=== PATIENT | male | born 1945 | race Caucasian/White ===

== ENCOUNTER 2016-12-06 12:37 | Observation (INO) | payer OTHER ==
[~2016-12-06] VITALS: Ht 188 cm; Wt 113.0 kg
[~2016-12-06 12:37] MED LIST: FAMO20TA18 PO; HYDR25SU24 PR; OLME1TAB33 PO
[2016-12-06 12:39] VITALS: Ht 188 cm; Wt 113.0 kg
--- NOTE | 2016-12-06 13:28 | ERA ---
ER Documentation Chief Complaint Date/Time DATE: 12/06/16 TIME: 13:27 Chief Complaint SENT BY PMD FOR LOW Hb HPI Patient is a 71-year-old male sent by PMD for low hemoglobin. The patient has history of esophagitis and GI bleed requiring 3 unit blood transfusion one year ago. Patient denies dark stool, bloody stool, vomiting, weakness, fatigue, lightheadedness, shortness of breath. Patient states that he went to the PMD for refill of blood pressure medication. ROS All systems reviewed and are negative except as per history of present illness. Medications Home Meds Reported Medications Xjbsxxnbor-Sanszhlhia-CWJL (Tribenzor) 40-5-25 Mg Tablet, 1 TAB PO DAILY, TAB 08/23/14 Discontinued Scripts Famotidine* (Famotidine*) 20 Mg Tablet, 20 MG PO DAILY, #30 TAB Prov:SEBASTIAN AHN DO 05/22/15 Hydrocortisone Acetate* (Anusol-HC*) 25 Mg/Supp.rect Supp.rect, 1 SUPP MD BID, # 12 SUPP.RECT Prov:SEBASTIAN AHN DO 05/22/15 Allergies Allergies: Coded Allergies: No Known Allergy (Unverified , 05/22/15) PMhx/Soc Past medical history: Hypertension, esophagitis Past surgical history: Back surgery Social history: Former tobacco smoker, no alcohol History of Surgery: No Anesthesia Reaction: No Hx Neurological Disorder: No Hx Respiratory Disorders: No Hx Cardiac Disorders: No Hx Psychiatric Problems: No Hx Miscellaneous Medical Probl: Yes (HTN, GI bleed) Hx Alcohol Use: No Hx Substance Use: No Hx Tobacco Use: No FmHx Family History: No coronary disease, No diabetes Physical Exam Vitals Vital Signs Date Time Temp Pulse Resp B/P Pulse Ox O2 Delivery O2 Flow Rate FiO2 12/06/16 12:39 98.5 90 18 148/70 99 Physical Exam Const: Alert, no acute distress Head: Atraumatic Eyes: Normal Conjunctiva, no pallor or icterus ENT: Normal External Ears, Nose and Mouth. Moist mucous membranes Neck: Full range of motion. No JVD. No meningismus. Resp: Clear to auscultation bilaterally, no wheezes, no rales Cardio: Regular rate and rhythm, no murmurs Abd: Soft, non tender, non distended. No guarding, no rebound Skin: No petechiae or rashes Back: No midline or flank tenderness Ext: No cyanosis, or edema Neur: Awake and alert, cranial nerves II through XII intact bilaterally, moves and feels 4 extremities appropriately. Psych: Normal Mood and Affect Result Diagram: 12/06/16 1345 12/06/16 1345 Results 24 hrs Laboratory Tests Test 12/06/16 13:45 White Blood Count 4.010^3/ul Red Blood Count 3.9310^6/ul Hemoglobin 8.7g/dl Hematocrit 31.1% Mean Corpuscular Volume 79.1fl Mean Corpuscular Hemoglobin 22.1pg Mean Corpuscular Hemoglobin Concent 28.0g/dl Red Cell Distribution Width 17.8% Platelet Count 9510^3/UL Mean Platelet Volume 9.4fl Neutrophils % 65.0% Lymphocytes % 27.0% Monocytes % 6.0% Eosinophils % 1.0% Basophils % 1.0% Neutrophils # 2.610^3/ul Lymphocytes # 1.110^3/ul Monocytes # 0.210^3/ul Eosinophils # 0.010^3/ul Basophils # 0.010^3/ul Prothrombin Time 14.4Sec Prothrombin Time Ratio 1.1 INR International Normalized Ratio 1.12 Activated Partial Thromboplast Time 37.4Sec Sodium Level 141mmol/L Potassium Level 4.1mmol/L Chloride Level 101mmol/L Carbon Dioxide Level 28mmol/L Anion Gap 16 Blood Urea Nitrogen 14mg/dl Creatinine 1.01mg/dl Glucose Level 102mg/dl Calcium Level 9.7mg/dl Total Bilirubin 0.7mg/dl Direct Bilirubin 0.00mg/dl Indirect Bilirubin 0.7mg/dl Aspartate Amino Transf (AST/SGOT) 41IU/L Alanine Aminotransferase (ALT/SGPT) 43IU/L Alkaline Phosphatase 71IU/L Total Protein 8.2g/dl Albumin 4.3g/dl Globulin 3.90g/dl Albumin/Globulin Ratio 1.10 Current Medications Medications (Trade) Dose Ordered Sig/Janna Route PRN Reason Start Time Stop Time Status Last Admin Dose Admin Pantoprazole (Protonix Iv) 40 mg ONCE ONCE IV 12/06/16 14:00 12/06/16 14:01 DC 12/06/16 13:58 Procedures/MDM 1:30 PM: I spoke with Dr. Walters, the patient's primary MD, who states that the patient had a positive guaiac in the office, that the patient's hemoglobin is 15 a few months ago, and that the patient has history of diffuse esophagitis causing GI bleed. Dr. Walters requested admission for monitoring of hemoglobin and GI consult. MDM: Patient with history of esophagitis causing GI bleed and required transfusion 1 year ago sent by his PMD for new onset anemia and guaiac positive stool. The patient is asymptomatic and hemodynamically stable. Hemoglobin is greater than 8. I will admit him to Dr. Nunez for trending of hemoglobin and GI consult. Single dose of Protonix given in the ER. No evidence of coagulopathy or thrombocytopenia. Departure Diagnosis: Primary Impression: Guaiac positive stools Additional Impression: Anemia Condition: ABA Mora MD Dec 06, 2016 13:28
[2016-12-06 13:52] LABS: ADD SCAN DIFF NO
[2016-12-06 13:54] LABS: ABNORMAL IP MESSAGE 1; HEMATOCRIT 31.1 % (42.0-52.0); HEMOGLOBIN 8.7 g/dl (14.0-18.0); MEAN CORPUSCULAR HEMOGLOBIN 22.1 pg (29.0-33.0); MEAN CORPUSCULAR VOLUME 79.1 fl (82.0-101.0); MEAN PLATELET VOLUME 9.4 fl (7.4-10.4); PLATELET COUNT 95 10^3/UL (140-415); RED BLOOD COUNT 3.93 10^6/ul (4.70-6.10); RED CELL DISTRIBUTION WIDTH 17.8 % (11.5-14.5)
[2016-12-06] MEDS ORDERED: PANTOPRAZOLE 40 MG INJ IV ONE (14:00)
[2016-12-06 14:03] LABS: ALBUMIN 4.3 g/dl (3.3-4.9)
[2016-12-06 14:04] LABS: POTASSIUM 4.1 mmol/L (3.5-5.1)
[2016-12-06 14:05] LABS: INR 1.12; PROTIME 14.4 Sec (12.2-14.2); PT RATIO 1.1
[2016-12-06 14:06] LABS: ALBUMIN/GLOBULIN RATIO 1.1; BILIRUBIN,INDIRECT 0.7 mg/dl (0-1.1); BILIRUBIN,TOTAL 0.7 mg/dl (0.2-1.3); CREATININE 1.01 mg/dl (0.61-1.24); PARTIAL THROMBOPLASTIN TIME 37.4 Sec (25.0-35.0); TOTAL PROTEIN 8.2 g/dl (6.1-8.1)
[2016-12-06 14:07] LABS: CALCIUM 9.7 mg/dl (8.4-10.2)
[2016-12-06 14:30] LABS: LYMPHOCYTES # 1.1 10^3/ul (0.8-2.9); MONOCYTE # 0.2 10^3/ul (0.3-0.9); NEUTROPHIL # 2.6 10^3/ul (1.6-7.5)
[2016-12-06] MEDS ORDERED: ACETAMINOPHEN 325 MG TAB PO PRN ×2 (16:30→18:00)
[2016-12-06] MEDS ORDERED: ONDANSETRON 4 MG INJ IV PRN ×2 (16:30→18:00)
[2016-12-06] MEDS: SOD CHLORIDE 0.9% 1,000 ML IV SCH (17:28)
[2016-12-06] MEDS ORDERED: ZOLPIDEM 5 MG TAB PO PRN (18:00)
[2016-12-06] MEDS ORDERED: NACL 0.9% 3 ML SYG IV SCH (18:00)
[2016-12-06] MEDS ORDERED: [UNRECOGNIZED DRUG - REMARK] XX SCH (18:00)
[2016-12-06] MEDS ORDERED: DOCUSATE SODIUM 100 MG CAP PO PRN (18:00)
[2016-12-06] MEDS ORDERED: morphine 2 MG INJ IV PRN (18:00)
[2016-12-06] MEDS ORDERED: HYDROCODONE/APAP (5/325) TAB PO PRN (18:00)
--- NOTE | 2016-12-06 18:10 | HP ---
DATE OF ADMISSION: 12/06/2016 CHIEF COMPLAINT: Anemia. HISTORY OF PRESENT ILLNESS: The patient is a 71-year-old male with a history of hypertension as wel l as chronic abdominal pain after he eats, as well as anemia. The patient was hospitalized here in 2013 for iron deficiency anemia. The patient does see Dr. Basurto in clinic. During last hospitaliz ation, the patient did receive iron as well as blood. Patient presents from his primary care physic michael's office with report of anemia. Patient's hemoglobin in the office was 9. In the ED at this ti wy it is 8.7. The patient's MCV is also low. He denies any dizziness, any chest pain or shortness of breath. He had gone to his primary care physician and received antibiotics for upper respiratory infection. He has no other complaints at this time. PAST MEDICAL HISTORY: As per HPI. HOME MEDICATIONS: Please see medication reconciliation. ALLERGIES: NO KNOWN DRUG ALLERGIES. FAMILY HISTORY: Noncontributory. SOCIAL HISTORY: The patient used to be a heavy smoker in the past, but he quit. He uses alcohol oc casionally. No illicit drug use. REVIEW OF SYSTEMS: A 12-point review of systems negative except as in HPI. PHYSICAL EXAMINATION: VITAL SIGNS: Temperature is 98.5, pulse 73, respiration is 20, BP is 158/70, saturation 98% on room air. GENERAL: No acute distress, alert and oriented. HEENT: Normocephalic, atraumatic. LUNGS: Clear to auscultation. CARDIOVASCULAR: Regular rate and rhythm. ABDOMEN: Obese, distended, nontender, soft. EXTREMITIES: No clubbing, cyanosis, or edema. LABORATORY TESTS: White count 4.____, hemoglobin is 8.7, MCV is 79.1, hematocrit is 31.1, platelets are 95. Chemistry within normal limits. INR is 1.12. ASSESSMENT AND PLAN: 1. Microcytic anemia. The patient does have a known history of microcytic anemia in the past secon karoline to iron deficiency. Will treat by giving 2 units packed red blood cells, we will check an iron level in the a.m. and will order Ferrlecit IV for the a.m.. The patient does follow up with Dr. Ashleigh glaser as an outpatient. 2. Pancytopenia. Patient does have leukopenia and thrombocytopenia as well as anemia. This is a c hronic issue for the patient. The patient follows up with Dr. Basurto as an outpatient. 3. Hypertension, stable. Continue home medications. 4. Recent upper respiratory infection, stable. 5. Prophylaxis: Sterile compressive dressings. Dictated By: OREN SALAMANCA MD BS/NTS Conf#: [id number] DID#: [id number]
[2016-12-06 21:13] VITALS: BP 167/72; RESP 18
[2016-12-07] MEDS: SOD CHLORIDE 0.9% 1,000 ML IV SCH ×4 (03:00→23:00)
[2016-12-07 05:50] LABS: ADD SCAN DIFF NO
[2016-12-07 05:53] LABS: ABNORMAL IP MESSAGE 1; BASOPHILS % 0.4 % (0.0-2.0); EOSINOPHILS # 0.1 10^3/ul (0.0-0.5); EOSINOPHILS % 1.3 % (0.0-7.0); HEMATOCRIT 28.6 % (42.0-52.0); HEMOGLOBIN 7.9 g/dl (14.0-18.0); LYMPHOCYTES # 0.6 10^3/ul (0.8-2.9); LYMPHOCYTES % 11.3 % (15.0-51.0); MEAN CORPUSCULAR HEMOGLOBIN 21.8 pg (29.0-33.0); MEAN CORPUSCULAR HGB CONC 27.6 g/dl (32.0-37.0); MEAN CORPUSCULAR VOLUME 78.8 fl (82.0-101.0); MEAN PLATELET VOLUME 10.9 fl (7.4-10.4); MONOCYTE # 0.6 10^3/ul (0.3-0.9); NEUTROPHIL # 4.2 10^3/ul (1.6-7.5); NEUTROPHILS % 75.6 % (39.0-77.0); PLATELET COUNT 86 10^3/UL (140-415); RED BLOOD COUNT 3.63 10^6/ul (4.70-6.10); RED CELL DISTRIBUTION WIDTH 17.8 % (11.5-14.5); WHITE BLOOD COUNT 5.6 10^3/ul (4.8-10.8)
[2016-12-07] MEDS ORDERED: PANTOPRAZOLE (EC) 40 MG TAB PO SCH (06:00)
[2016-12-07 06:08] LABS: CALCIUM 8.7 mg/dl (8.4-10.2); CREATININE 0.97 mg/dl (0.61-1.24); MAGNESIUM 1.4 mg/dl (1.7-2.5); PHOSPHORUS 4.1 mg/dl (2.5-4.9); POTASSIUM 4.3 mmol/L (3.5-5.1)
[2016-12-07 06:19] LABS: IRON 31 ug/dl (35-150)
[2016-12-07 06:29] LABS: TOTAL IRON BINDING CAPACITY 452 ug/dl (241-421)
[2016-12-07 08:42] VITALS: BP 142/67; RESP 18
[2016-12-07] MEDS ORDERED: NON-FORMULARY/PATIENT OWN MED (Olmesartan-Amlodipine-HCTZ (Tribenzor) 1 TAB) XX SCH (09:00)
[2016-12-07] MEDS ORDERED: TRIBENZOR PO SCH (09:00)
[2016-12-07] MEDS ORDERED: SOD CHLORIDE 0.9% 250 ML IV* ONE (09:57)
[2016-12-07] MEDS ORDERED: SOD FERRIC GLUC COMPLX 125 MG in SOD CHLORIDE 0.9% 100 ML IVPB ONE (11:30)
[2016-12-07] MEDS ORDERED: MAGNESIUM SULFATE 4 GM/100 ML 100 ML IVPB ONE (12:00)
[2016-12-07] MEDS ORDERED: ASC500 PO (13:33)
[2016-12-07] MEDS ORDERED: FER325 PO (13:33)
--- NOTE | 2016-12-07 13:34 | PDOCDIS ---
Discharge Instructions CONDITION Patient Condition: Good HOME CARE INSTRUCTIONS: Diet Instructions: Regular ACTIVITY: Activity Restrictions: No Restrictions FOLLOW UP/APPOINTMENTS Appointments F/U WITH YOUR PCP IN 1-2 WEEKS OREN SALAMANCA Dec 07, 2016 13:34
--- NOTE | 2016-12-07 14:37 | DS ---
DATE OF ADMISSION: 12/06/2016 DATE OF DISCHARGE: 12/07/2016 DISCHARGE DIAGNOSES: 1. Iron deficiency anemia, status post 2 units of packed red blood cells and IV iron, discharge wit h p.o. iron. 2. Pancytopenia is chronic. The patient does follow up with hematology as an outpatient. 3. Hypertension, stable. Continue home medications. 4. Recent upper respiratory infection, now stable. HOSPITAL COURSE: The patient is a 71-year-old male with a history of pancytopenia with leukopenia, anemia, and thrombocytopenia. The patient does have a known history of iron deficiency anemia. The patient does follow up with Dr. Basurto as an outpatient. The patient was noted to be anemic at his primary care physician's office. He was sent to the ED. The patient received 2 units of packed blo od cells as well as IV iron during his hospitalization. Of note, he was asymptomatic, was not compl aining of any dizziness, any shortness of breath. Once again, the patient was transfused 2 units of packed red blood cells. He received Ferrlecit IV and he was felt to be stable for discharge. On t day of discharge, the patient's vitals, labs, physical exam were stable. He had no acute complai nts and questions were answered. CONDITION ON DISCHARGE: Stable. DISPOSITION: To home. MEDICATIONS: The patient was given a prescription for ferrous sulfate 325 mg p.o. b.i.d. for 60 day s to be taking with Vitamin C 500 mg p.o. b.i.d. for 60 days. The patient is to continue his home b lood pressure medication. FOLLOWUP: Follow up with his PCP in 1 to 2 weeks. Greater than 30 minutes was spent coordinating discharge of patient. Dictated By: OREN DOMINGUEZ/PAUL Conf#: [id number] DID#: [id number]
[2016-12-07 20:00] VITALS: BP 150/60; PULSE 80; RESP 18
[2016-12-07 23:30] VITALS: BP 146/64; PULSE 76; RESP 19
== END 2016-12-07 23:59 | disposition home or self-care (01) ==
LOC: E/R 12:37 → MS2 16:14
PROVIDERS: ADMIT Family Medicine; ATTEND Family Medicine
DX: D50.9 Iron deficiency anemia, unspecified (principal); D61.818 Other pancytopenia; R19.5 Other fecal abnormalities; I10 Essential (primary) hypertension; J06.9 Acute upper respiratory infection, unspecified
CPT/HCPCS: 36415; 36430; 80048; 80053; 83036; 83540; 83735; 84100; 85025; 85610; 85730; 86644; 86850; 86900; 86901; 86920; 96374; 99285; C9113; G0378; J2916; J3475; J7030; J7040; P9016; 99217

== ENCOUNTER 2017-07-27 07:39 | Day surgery (SDC) | payer OTHER ==
[~2017-07-27] VITALS: Ht 190.5 cm; Wt 116.8 kg
[~2017-07-27 07:39] MED LIST changes: +ASC500 PO; -FAMO20TA18 PO; +FER325 PO; -HYDR25SU24 PR
[2017-07-27 08:39] VITALS: BP 183/81; PULSE 68; RESP 16
[2017-07-27 08:46] VITALS: Ht 190.5 cm; Wt 116.8 kg
[2017-07-27] MEDS ORDERED: LIDOCAINE 2% (SDV) 5 ML INJ ONE (09:02)
[2017-07-27] MEDS ORDERED: PROPOFOL 60 ML ONE (09:02)
--- NOTE | 2017-07-27 09:43 | OPPN ---
Date/Time of Note Date/Time of Note DATE: 07/27/17 TIME: 09:42 Proc Note GI Procedure Date 07/27/17 Indication: diagnostic Pre-procedure Diagnosis Iron deficiency anemia Post-procedure Diagnosis Severe nodular gastritis Rectal varicose vein 3 polyp successfully removed by cold snare technique Hemorrhoid Procedure Performed: Endoscopy, Colonoscopy Surgeon see signature line Lockstitch Back Maker none Anesthesia Type: MAC Tourniquet Time none EBL none Transfusion required none Biopsy 1: None Polyp 1: Colon polyp removed Polyp 2: Transverse colon polyp removed Polyp 3: Total polyp removed by cold snare technique Grafts/Implants none Tubes/Drains none Complication(s) none Disposition: PACU Procedure Description Dictated JOSE WEBB MD Jul 27, 2017 09:43
[2017-07-27 10:05] VITALS: BP 156/72; RESP 20
--- NOTE | 2017-07-28 07:58 | GILP ---
DATE OF PROCEDURE: PROCEDURE PERFORMED: Esophagogastroduodenoscopy with biopsy and cold snare polypectomy. Totally 3 polyps were removed on patient. INDICATION: A 72-year-old male undergoing this procedure for iron deficiency anemia. The risks of the procedure, related and unrelated complications, anesthetic risks, alternatives discussed. Infor med consent was obtained. DESCRIPTION OF PROCEDURE: The patient was brought to the GI lab, sedated by Dr. Alva. After obta ining appropriate sedation, scope was passed with much ease into esophagus which was grossly within normal limits. Z line was at 40 cm. Stomach mucosa revealed moderate to severe gastritis with nodu larity throughout the stomach. Four biopsies obtained. Duodenum, first and second part was within normal limits. Retroversion in the stomach was normal. No varicose vein identified. Scope was str aightened out and removed with good patient tolerance. IMPRESSION 1. Normal esophagus. 2. Z line regular at 40 cm. 3. Torre nodular gastritis, moderate to severe degree. 4. Normal duodenum. PLAN: Review histopathology. COLONOSCOPY REPORT: The patient was turned around. Digital examination done, which was normal. Sc ope was passed with much ease into rectum. The rectal varicose vein identified and advanced slowly all the way into the cecum. Appendiceal orifice identified. While coming out, mucosa thoroughly in spected. There was a 1 cm polyp identified in the ascending colon successfully removed by cold snar e technique. There was another 1 cm polyp identified in the transverse colon, again removed by cold snare technique and there was a third a flat polyp identified in the rectum 1.1 cm successfully aga in removed by cold snare technique. The patient had external hemorrhoids. IMPRESSION: 1. External hemorrhoid. 2. Rectal varicose vein. 3. Three polyps successfully removed by cold snare technique from different sites. PLAN: Review histopathology of the polyp. I need to look at the lab and find out whether the patie nt has a true iron deficiency or not. If it is a true iron deficiency, then will proceed with capsu le endoscopy. If it is not, then patient needs further workup for anemia. Dictated By: JOSE WEBB MD PJ/NTS Conf#: [id number] DID#: [id number] CC: JOSE WEBB MD; JOE NOLAND MD;*EndCC*
== END 2017-07-27 17:24 | disposition home or self-care (01) ==
LOC: GIL 07:39
PROVIDERS: ATTEND Internal Medicine Gastroenterology
DX: D50.9 Iron deficiency anemia, unspecified (principal); K29.70 Gastritis, unspecified, without bleeding; D12.3 Benign neoplasm of transverse colon; K29.80 Duodenitis without bleeding; K64.8 Other hemorrhoids; I10 Essential (primary) hypertension; J44.9 Chronic obstructive pulmonary disease, unspecified; Z87.891 Personal history of nicotine dependence
CPT/HCPCS: 88305; 88312